=== PATIENT | female | born 1995 | race Native Hawaiian/Other Pacific Islander ===

== ENCOUNTER 2018-12-12 17:54 | Emergency (ER) | payer OTHER ==
[~2018-12-12] VITALS: Ht 160 cm; Wt 88.9 kg
[2018-12-12 19:37] VITALS: BP 135/101; TEMP 97.5
== END 2018-12-12 19:36 | disposition home or self-care (01) ==
LOC: ED 17:54
DX: L73.9 Follicular disorder, unspecified (principal); J06.9 Acute upper respiratory infection, unspecified
CPT/HCPCS: 87502; 87651; 99283